=== PATIENT | female | born 1995 | race American Indian/Alaskan Native ===

== ENCOUNTER 2017-01-22 10:59 | Emergency (ER) | payer SELFPAY ==
[2017-01-22 11:22] VITALS: BP 97/62
[2017-01-22 12:10] LABS: Bilirubin,Urine NEG (Negative); Blood,Urine MOD (Negative); Ketones,Urine NEG (Negative); Leukocyte Esterase,Urine NEG (Negative); Mucus,Urine 3+ /HPF; Nitrite,Urine NEG (Negative)
[2017-01-22 12:13] LABS: Hematocrit 35.5 % (30.3-42.9); Hemoglobin 11.1 gm/dl (10.1-14.3); Mean Corpuscular HGB Conc 31 % (30-34); Mean Corpuscular Volume 80 fl (79-97); Platelet Count 178 K/mm3 (140-440); Red Blood Count 4.44 M/mm3 (3.65-5.03); White Blood Count 5.4 K/mm3 (4.5-11.0)
[2017-01-22 12:15] LABS: Anion Gap 18 mmol/L; BUN/Creatinine Ratio 21.66; Blood Urea Nitrogen 13 mg/dL (7-17); Calcium 9.4 mg/dL (8.4-10.2); Carbon Dioxide 23 mmol/L (22-30); Glucose 80 mg/dL (65-100); Potassium 3.6 mmol/L (3.6-5.0); Sodium 137 mmol/L (137-145)
[2017-01-22 12:20] LABS: Mean Corpuscular Hemoglobin 25 pg (28-32)
--- NOTE | 2017-01-22 13:51 | Ultrasound Report ---
FINAL REPORT PROCEDURE: US OB \T\lt; = 14 WEEKS FETUS TECHNIQUE: Transabdominal ultrasound of the gravid pelvis was performed. HISTORY: preg with pain and bleeding COMPARISON: None FINDINGS: There is no free fluid. There is a intrauterine gestation as well as benign appearing cyst of the right ovary. IMPRESSION: Single live intrauterine gestation. No free fluid. Benign right ovarian cyst please see presently performed more sensitive transvaginal study for further evaluation.
--- NOTE | 2017-01-22 13:56 | Ultrasound Report ---
FINAL REPORT PROCEDURE: US OB TRANSVAGINAL TECHNIQUE: Transvaginal grayscale and color imaging as well as duplex Doppler of the pelvis was performed. HISTORY: preg with pain and bleeding COMPARISON: None FINDINGS: There is no free fluid. The cervix is closed. There is a single live intrauterine gestation with normal appearing gestational and yolk sac as well as pole. [place]-rump length suggests an expected gestational age of 6 weeks 6 days. heart rate of 124 beats per minute was noted. There is no subchorionic hemorrhage or free fluid. The right ovary measures 3.3 x 2.4 x 2.4 centimeters while the left ovary measures 2.8 x 1.5 x 3.5 centimeters. 1.9 centimeter complex cyst of the right ovary is present. Normal blood flow is present of both ovaries. IMPRESSION: 1. Single living intrauterine gestation at approximately 6 weeks 6 days 2. EDC by US 09/11/2017. 3. 1.9 centimeter complex cyst of the right ovary without torsion likely corpus luteal.
== END 2017-01-22 11:36 | disposition left against medical advice (07) ==
LOC: ED 10:59
DX: O20.9 Hemorrhage in early pregnancy, unspecified (principal); G43.909 Migraine, unspecified, not intractable, without status migrainosus; Z3A.01 Less than 8 weeks gestation of pregnancy; Z91.048 Other nonmedicinal substance allergy status; Z53.21 Procedure and treatment not carried out due to patient leaving prior to being seen by health care provider
CPT/HCPCS: 36415; 76801; 76817; 80048; 81001; 84702; 85027; 86900; 86901